=== PATIENT | male | born 1970 | race Caucasian/White ===

== ENCOUNTER 2024-05-10 15:49 | Outpatient (CLI) | payer BC, SELFPAY ==
--- OUTSIDE RECORDS SUMMARY | 2024-05-10 15:53 | XMS_ITS | Encounter Summary ---
Author Organization [facility] Address [address], [place] [address] Care Team Providers Care Licensed Home Inspector Name Role Phone Rashad Rosales TYSON Primary Care Provider Reason for Visit * Reason Comments REFERRAL REQUEST Entered automaticall y based on patient selection in [employer]. Encounter Details Date Type Department Care Team (Late st Contact Info) Description 03/29/2024 10:10 PM CDT E-Visit [facility] [address] [facility]. [place], [place] [id number] Rashad Rosales MBBS [address] [place] [address] Chief Comp: REFERRAL REQUEST Social History Tobacco Use Types Packs/Day Years Used Date Smoking Tobacco: Former Cigarettes 0.5 2 Smokeless Tobacco: Former Alcohol Use Standard Drinks/Week Comments No 0 (1 standard drink = 0.6 oz pur e alcohol) currently in treatment PHQ-2 Answer Date Recorded PHQ-2 Score 0 01/07/2024 Financial Resource Strain Answer Date R ecorded Is it hard for you to pay fo r the very basics like food, housing, medical care or heating? No 01/07/2024 Food Insecurity Answer Date Recorded Does your food run out before you have the money to buy more? No 01/07/2024 Transportation Needs Answer Date Record ed Does a lack of transportatio n keep you from your medical appointments or from getting your medications? 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 documented in this encounter Plan of Treatment Not on file documented as of this encounter Visit Diagnoses Not on filedocumented in this encounter Care Teams Licensed Home Inspector Relationship Specialty Start Date End Date Rashad Rosales MBBS [address] [facility] [place] [address] PCP - General 06/28/13 documented as of this encounter
--- OUTSIDE RECORDS SUMMARY | 2024-05-10 15:53 | XMS_ITS | Encounter Summary ---
Author Organization [facility] Address [address], [place] [address] Care Team Providers Care Bail Bond Agent Name Role Phone Rashad Rosales Primary Care Provider Reason for Referral * Consult/Transfer Care (Routine) - New Request Specialty Diagnoses / Procedures Referred By Susan baldwin Referred To Contact Diagnoses Osteoma of skull Rashad Rosales MBBS [address] [place] [address] Referral ID Status Reason Start Date Expiration Date V isits Requested Visits Authorized [id number] New Request 04/10/2024 07/10/2025 1 1 Scheduling Instructions Your provider has recommended an appointment with [facility]. You may call [phone] for help scheduling your appointment. We suggest you call your health insurance company about your coverage and benefits for this appointment. Question Answer Appointment Urgency? Non-Urgent Reason for visit? Skull osteoma Encounter Details Date Type Department Care Team (Late st Contact Info) Description 04/10/2024 Notes/Orders [facility] Medicine [address] [facility] 

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
--- NOTE | 2024-05-10 16:00 | CRLHL7_ITS ---
For Patients: As a result of the Century Cures Act, medical imaging exams and procedure reports are released immediately into your electronic medical record. You may view this report before your referring provider. If you have questions, please contact your health care provider. INDICATION: Left forehead bump. Present for 2 years. Technique : CT images are obtained through the upper facial bones and paranasal sinuses without contrast. Multiplanar reconstructions. Findings : There is a small localized thickening of the external table of the left frontal calvarium consistent with a nonaggressive osteoma. This measures approximately 10 mm in diameter and 3 mm in thickness. The adjacent diploic space and inner table appears normal. There is no associated lytic lesion or fracture. The orbital garcia are intact. The orbital globes unremarkable. There is a hypoplastic frontal sinus. Mild mucosal thickening in the inferior frontal recesses and anterior ethmoid air cells. The zygomatic arches are intact. 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 Incidental hypoplastic frontal sinus and paranasal sinus mucosal thickening. Please note that all CT scans at this facility use dose modulation, iterative reconstruction, and/or weight-based dosing when appropriate to reduce radiation dose to as low as reasonably achievable. Dictated by Carmine Adrian MD @ 05/12/2024 7:22:41 AM (Electronically Signed)
== END 2024-05-10 15:50 | disposition home or self-care (01) ==
PROVIDERS: PCP Family Medicine; Visit Provider Family Medicine
DX: R22.0 Localized swelling, mass and lump, head (principal); D16.4 Benign neoplasm of bones of skull and face
CPT/HCPCS: 70486